=== PATIENT | male | born 1970 | race African-American/Black ===

== ENCOUNTER 2016-06-09 08:14 | Emergency (ER) | payer BC ==
[2016-06-09] MEDS ORDERED: Lidocaine 1% 20 ML MDV ONE (08:27)
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
== END 2016-06-09 09:01 | disposition home or self-care (01) ==
LOC: NAV ERS 08:14
DX: S80.252A Superficial foreign body, left knee, initial encounter (principal); I10 Essential (primary) hypertension; M10.9 Gout, unspecified; F17.220 Nicotine dependence, chewing tobacco, uncomplicated; Z79.899 Other long term (current) drug therapy; W25.XXXA Contact with sharp glass, initial encounter
CPT/HCPCS: 99283; J2001

== ENCOUNTER 2016-10-14 07:41 | Emergency (ER) | payer BC ==
[2016-10-14] MEDS ORDERED: Sodium Chloride 0.9% 1,000 ML ONE (08:12)
[2016-10-14 08:22] LABS: #Basophils 0.1 thou/uL (0.0-0.2); #Eosinphils 0.1 thou/uL (0.0-0.7); #Lymphocytes 4.2 thou/uL (1.20-3.40); #Monocytes 0.2 thou/uL (0.11-0.59); #Neutrophils 1.8 thou/uL (1.40-6.50); %Basophils 0.9 % (0.0-1.0); %Eosinophils 0.8 % (0.0-10.0); %Lymphocytes 66.3 % (21.0-51.0); %Monocytes 3.5 % (0.0-10.0); %Neutrophils 28.5 % (42.0-75.0); Hemoglobin 15.8 g/dL (14.0-18.0); Mean Corpuscular HGB CONC 32.2 g/dL (32.0-36.0); Mean Corpuscular Hemoglobin 32.1 pg (27.0-31.0); Mean Corpuscular Volume 99.4 fl (80.0-94.0); Mean Platelet Volume 9.9 fL (7.4-10.4); Platelet Count 224 thou/uL (130-400); RBC Distribution Width 11.9 % (11.5-14.5); Red Blood Cell (RBC) Count 4.93 mill/uL (4.70-6.10); White Blood Cell (WBC) Count 6.3 thou/uL (4.8-10.8)
[2016-10-14 08:26] LABS: INR-International Normal Ratio 1.1; PTT 23.2 SEC (22.9-36.1); Prothrombin Time 14.2 SEC (12.0-14.7)
[2016-10-14 08:29] LABS: D-Dimer Test Less than 0.27 *mcg/mL (0.27-0.43)
[2016-10-14 08:36] LABS: ALT (SGPT) 40 U/L (8-55); AST (SGOT) 32 U/L (5-34); Albumin 3.8 g/dL (3.5-5.0); Alkaline Phosphatase 78 U/L (40-150); Anion Gap 19 mmol/L (10-20); BUN (Urea Nitrogen) 10 mg/dL (8.9-20.6); Bilirubin, Total 0.7 mg/dL (0.2-1.2); CKMB 3.3 ng/mL (0-6.6); Calc. Creatinine Clearance 0 mL/min (70-130); Calcium 8.2 mg/dL (7.8-10.44); Carbon Dioxide 19 mmol/L (22-29); Chloride 110 mmol/L (98-107); Estimated GFR-MDRD Greater than 90; Globulin 3.4 g/dL (2.4-3.5); Glucose 223 mg/dL (70-105); Potassium 3.6 mmol/L (3.5-5.1); Protein, Total 7.2 g/dL (6.0-8.3); Sodium 144 mmol/L (136-145); Troponin I 0.025 ng/mL (< 0.028)
--- NOTE | 2016-10-14 09:00 | CT ---
CT BRAIN: Date: 10/14/16 PROVIDED CLINICAL HISTORY: Altered mental status. TECHNIQUE: CT data was acquired through the brain without contrast. FINDINGS: Comparison made with the study dated 10/25/14. The ventricular system appears normal in size and morphology. There is no evidence for intracranial hemorrhage or mass effect. The extracranial soft tissues and osseous structures demonstrate an unrem arkable CT appearance. IMPRESSION: No evidence for intracranial hemorrhage or mass effect. POS: [facility]
--- NOTE | 2016-10-14 09:03 | RAD ---
PORTABLE CHEST: Date: 10/14/16 HISTORY: Dizziness. FINDINGS: Lungs appear clear on this portable with lordotic positioning. No infiltrate or significant effusion . Heart and mediastinum appear unremarkable for this projection. IMPRESSION: No acute abnormality identified. POS: [facility]
== END 2016-10-14 09:17 | disposition short-term general hospital (02) ==
LOC: NAV ERS 07:41
DX: I24.9 Acute ischemic heart disease, unspecified (principal); R42 Dizziness and giddiness; R55 Syncope and collapse; I10 Essential (primary) hypertension; F17.220 Nicotine dependence, chewing tobacco, uncomplicated; Z79.899 Other long term (current) drug therapy
CPT/HCPCS: 36415; 36416; 70450; 71010; 80053; 82553; 83880; 84484; 85025; 85379; 85610; 85730; 93005; 94760; 96360; J7050

== ENCOUNTER 2017-05-29 07:40 | Emergency (ER) | payer BC | END 2017-05-29 08:25 | disposition home or self-care (01) | LOC: NAV ERS 07:40 | DX: R42 Dizziness and giddiness (principal); E78.5 Hyperlipidemia, unspecified; I10 Essential (primary) hypertension; M10.9 Gout, unspecified; F17.220 Nicotine dependence, chewing tobacco, uncomplicated; Z79.899 Other long term (current) drug therapy | CPT/HCPCS: 93005 ==

== ENCOUNTER 2019-10-25 14:39 | Outpatient (CLI) | payer BC, OTHER ==
--- NOTE | 2019-10-25 15:09 | RAD ---
Lumbar spine 3 views HISTORY: Low back pain. FINDINGS: There are 5 lumbar type vertebrae. Pedicles are intact. Minimal physiologic wedging of the T12 vertebral body on the lateral view. No acute fracture or dislocation are apparent. Bulky osteophytosis throughout the vertebral bodies and facets. Gas disc phenomenon at the lowest 2 l evels. No acute fracture or dislocation evident. Calcification over the arterial structures. IMPRESSION : Prominent osteophytosis and degenerative changes throughout the lumbar spine. No acute osseous abnorm alities are demonstrated. Atherosclerosis.
== END 2019-10-25 14:40 | disposition home or self-care (01) ==
LOC: NAV RAD 14:39
PROVIDERS: ATTEND Nurse Practitioner Family
DX: M54.42 Lumbago with sciatica, left side (principal); M47.816 Spondylosis without myelopathy or radiculopathy, lumbar region; I70.90 Unspecified atherosclerosis; M25.78 Osteophyte, vertebrae
CPT/HCPCS: 72100

== ENCOUNTER 2020-03-13 14:13 | Outpatient (CLI) | payer BC ==
--- NOTE | 2020-03-13 14:37 | RAD ---
LEFT KNEE 4 VIEWS: Date: 03/13/2020 HISTORY: Knee pain. Possible foreign body. TECHNIQUE: A total of 4 views obtained. Two views were obtained with an anterior skin marker at site of concern for foreign body. FINDINGS: Moderate degenerative changes of the knee. The medial and lateral joint spaces are relatively well pr eserved; however, there are prominent marginal osteophytes which appear more pronounced laterally. Mo derately severe degenerative changes at the patellofemoral joint. A calcification is noted in the infrapatellar ligament. At the site of the marker, there is a nonspecific density which may reside within the skin, which cou ld represent foreign body or calcification. IMPRESSION: 1. Moderately severe degenerative changes of the knee. 2. Evidence of calcification within the infrapatellar tendon. 3. Nonspecific density in the skin at the site of the marker which could represent a foreign body. POS: [facility]
== END 2020-03-13 14:14 | disposition home or self-care (01) ==
LOC: NAV RAD 14:13
PROVIDERS: ATTEND Nurse Practitioner Family
DX: M25.562 Pain in left knee (principal); M17.12 Unilateral primary osteoarthritis, left knee; M22.2X2 Patellofemoral disorders, left knee

== ENCOUNTER 2021-02-20 12:30 | Outpatient (CLI) | payer BC | END 2021-02-20 12:31 | disposition home or self-care (01) | LOC: NAV RAD 12:30 | PROVIDERS: ATTEND Nurse Practitioner Family | DX: M25.512 Pain in left shoulder (principal) ==

== ENCOUNTER 2021-04-25 09:15 | Emergency (ER) | payer BC, OTHER, SELFPAY ==
[2021-04-25] MEDS ORDERED: Nitroglycerin 0.4 MG TAB (25 Tab Bottle) ONE (09:36)
[2021-04-25] MEDS ORDERED: Ondansetron PF 4 MG/2 ML Vial ONE (09:36)
[2021-04-25] MEDS ORDERED: Aspirin Chewable 81 MG TAB ONE (09:36)
[2021-04-25 10:08] LABS: #Eosinphils 0.1 thou/uL (0.0-0.7); #Lymphocytes 1.8 thou/uL (1.20-3.40); #Monocytes 0.4 thou/uL (0.11-0.59); #Neutrophils 2.3 thou/uL (1.40-6.50); %Basophils 0.6 % (0.0-1.0); %Eosinophils 1.2 % (0.0-10.0); %Lymphocytes 39.2 % (21.0-51.0); %Monocytes 8.2 % (0.0-10.0); %Neutrophils 50.8 % (42.0-75.0); Mean Corpuscular Hemoglobin 33.3 pg (27.0-31.0); Mean Platelet Volume 9.6 fL (7.4-10.4); Platelet Count 180 thou/uL (130-400); RBC Distribution Width 11.8 % (11.5-14.5); Red Blood Cell (RBC) Count 4.21 mill/uL (4.70-6.10); White Blood Cell (WBC) Count 4.5 thou/uL (4.8-10.8)
[2021-04-25 10:27] LABS: ALT (SGPT) 20 U/L (8-55); AST (SGOT) 27 U/L (5-34); Albumin 3.8 g/dL (3.5-5.0); Alkaline Phosphatase 85 U/L (40-110); Anion Gap 18 mmol/L (10-20); BUN (Urea Nitrogen) 5 mg/dL (8.4-25.7); Bilirubin, Total 0.8 mg/dL (0.2-1.2); CK (CPK) 244 U/L (30-200); Calc. Creatinine Clearance 0 mL/min (70-130); Calcium 8.8 mg/dL (7.8-10.44); Carbon Dioxide 24 mmol/L (22-29); Chloride 104 mmol/L (98-107); Globulin 3.6 g/dL (2.4-3.5); Lipase 36 U/L (8-78); Potassium 3.5 mmol/L (3.5-5.1); Protein, Total 7.4 g/dL (6.0-8.3); Sodium 142 mmol/L (136-145)
[2021-04-25 10:28] LABS: Glucose 189 mg/dL (70-105)
[2021-04-25 12:30] LABS: SARS-CoV-2 NAA Rapid Test Not Detected (NotDetected)
== END 2021-04-25 17:54 | disposition short-term general hospital (02) ==
LOC: NAV ERS 09:15
DX: R07.9 Chest pain, unspecified (principal); R10.816 Epigastric abdominal tenderness; I10 Essential (primary) hypertension; E11.9 Type 2 diabetes mellitus without complications; M10.9 Gout, unspecified; E78.5 Hyperlipidemia, unspecified; F17.220 Nicotine dependence, chewing tobacco, uncomplicated; Z20.822 Contact with and (suspected) exposure to COVID-19; Z79.899 Other long term (current) drug therapy
CPT/HCPCS: 0240U; 36415; 71045; 80053; 82550; 83690; 84484; 85025; 93005; 96374; J2405

== ENCOUNTER 2024-06-24 12:16 | Outpatient (CLI) | payer OTHER | END 2024-06-24 12:17 | disposition home or self-care (01) | LOC: NAV RAD 12:16 | PROVIDERS: ATTEND Nurse Practitioner Family | DX: M25.531 Pain in right wrist (principal); R29.898 Other symptoms and signs involving the musculoskeletal system; M19.021 Primary osteoarthritis, right elbow ==